=== PATIENT | female | born 1940 | race Caucasian/White ===

== ENCOUNTER 2018-06-18 21:59 | Observation (INO) | payer OTHER ==
[~2018-06-18] VITALS: Ht 172.7 cm; Wt 103.9 kg
[~2018-06-18 21:59] MED LIST: ATORVASTATIN CA20 MG PO; CEFTIN250 MG/5 M PO; FLUOXETINE HCL20 MG PO; FOLIC ACID1 MG PO; GLIMEPIRIDE4 MG PO; JANUMET XR 50-1 EAC1 PO; KEFLEX500 MG PO; LEVOTHYROXINE50 MCG PO; LOSARTAN POTAS100 MG PO; LOSARTAN POTASS25 MG PO; MECLIZINE HCL12.5 MG PO; METHOTREXATE2.5 MG PO; NIFEDIPINE ER30 M1 PO; PREDNISONE5 MG PO; TYLENOL WITH C1 EACH PO
--- NOTE | 2018-06-18 23:02 | Diagnostic Imaging Report ---
ADDENDUM #1 Dose modulation, iterative reconstruction, and/or weight based adjustment of the mA/kV was utilized to reduce the radiation dose to as low as reasonably achievable. Signed by: DR Klaus Rivera M.D. on 06/29/2018 8:18 PM ORIGINAL REPORT History:Fall, slurred speech Comparison studies:None Technique: Axial images were obtained from the skull base to the vertex. Coronal and sagittal images reconstructed from the axial data. Intravenous contrast: None Findings: Scalp/skull: No abnormalities. Extra-axial spaces: No masses. No fluid collections. Brain sulci: Mildly prominent. Ventricles: Mild compensatory dilatation. No hydrocephalus. Parenchyma: Few hypodensities in the supratentorial white matter are small vessel ischemic changes. No masses, hemorrhage, acute or chronic cortical vascular insults. Sellar/suprasellar region: No abnormalities. Craniocervical junction: Patent foramen magnum. No Chiari one malformation. Incidental findings: Atherosclerotic calcifications in the carotid siphons . Impression: No acute abnormalities. Chronic findings: 1. Mild generalized volume loss. 2. Mild supratentorial white matter small vessel ischemic changes. Signed by: DR Klaus Rivera M.D. on 06/18/2018 10:59 PM
[2018-06-18 23:04] LABS: BASOPHILS # (AUTO) 0.1 (0.0-0.1); EOSINOPHILS # (AUTO) 0.1 (0.0-0.4); EOSINOPHILS % 1.9 % (0.0-6.0); HEMATOCRIT 41.1 % (34.2-44.1); LYMPHOCYTES # (AUTO) 2.5 (1.0-3.2); LYMPHOCYTES % 37.6 % (18.0-39.1); MEAN CORPUSCULAR HEMOGLOBIN 34.8 pg (28-32); MEAN CORPUSCULAR HGB CONC 34.1 g/dL (31-35); MEAN CORPUSCULAR VOLUME 102.2 fL (81-99); MONOCYTES # (AUTO) 0.9 (0.2-0.8); MONOCYTES % 12.9 % (4.4-11.3); NEUTROPHILS # (AUTO) 3.1 (2.1-6.9); NEUTROPHILS % 45.4 % (38.7-80.0); PLATELET COUNT 263 x10e3/uL (140-360); RED BLOOD COUNT 4.02 x10e6/uL (3.6-5.1); RED CELL DISTRIBUTION WIDTH 13.5 % (11.7-14.4)
--- NOTE | 2018-06-18 23:05 | Diagnostic Imaging Report ---
ADDENDUM #1 Dose modulation, iterative reconstruction, and/or weight based adjustment of the mA/kV was utilized to reduce the radiation dose to as low as reasonably achievable. Signed by: DR Klaus Rivera M.D. on 06/29/2018 8:19 PM ORIGINAL REPORT History: Fall Comparison studies: None Technique: Axial images were obtained through the cervical region. Coronal and sagittal images reconstructed from the axial data. Intravenous contrast: None Findings: Atlantoaxial articulation: No acute abnormality. Degenerative changes. Space, sclerosis and marginal osteophytes Alignment: Straightening cervical lordosis Cervicomedullary junction: No abnormalities. Patent foramen magnum. Soft tissues: No gross acute abnormalities. Atherosclerotic calcifications of the carotid siphons Vertebrae: No fractures, neoplasm or infection. Degenerative changes: C2-C3: Patent spinal canal and foramina . C3-4: Bilateral uncinate process and facet hypertrophy results in bilateral . C4-5: Is degeneration with decreased through 2 space. Bilateral uncinate processes and left facet hypertrophy results in significant canal stenosis and moderate left foraminal narrowing . C5-6: Disc degeneration with decreased intervertebral space and mild sclerosis. Bilateral uncinate process hypertrophy and facet hypertrophy results in mild canal stenosis and moderate bilateral foraminal narrowing. . C6-7: Disc degeneration with decreased intervertebral space. Asymmetric right disc osteophyte complex, bilateral uncinate process hypertrophy and facet hypertrophy results in moderate right canal stenosis and severe bilateral foraminal narrowing . C7-T1: Patent spinal canal and foramina . IMPRESSION: 1. No acute abnormality. Degenerative changes as described above. 2. Cannot exclude ligament, spinal cord and or vascular abnormalities on the basis of this examination Signed by: DR Klaus Rivera M.D. on 06/18/2018 11:02 PM
[2018-06-18 23:11] LABS: CLARITY,URINE CLOUDY (CLEAR); COLOR,URINE YELLOW (YELLOW); LEUKOCYTE ESTERASE ,URINE NEGATIVE (NEGATIVE)
[2018-06-18 23:12] LABS: BILIRUBIN,URINE NEGATIVE (NEGATIVE); KETONES,URINE NEGATIVE (NEGATIVE); NITRITE,URINE NEGATIVE (NEGATIVE); PROTEIN,URINE DIPSTICK NEGATIVE (NEGATIVE); URINE UROBILINOGEN 0.2 mg/dL (0.2 - 1)
[2018-06-18 23:16] LABS: INR 1.02; PROTHROMBIN TIME 12.6 seconds (11.9-14.5)
[2018-06-18 23:17] LABS: PARTIAL THROMBOPLASTIN TIME 23.1 seconds (23.8-35.5)
--- NOTE | 2018-06-18 23:18 | Diagnostic Imaging Report ---
EXAMINATION: CHEST SINGLE (PORTABLE) INDICATION: Status post fall, chest pain COMPARISON: None FINDINGS: TUBES and LINES: None. LUNGS: Lungs are well inflated. Lungs are clear. There is mild prominence of the central pulmonary vasculature, consistent with pulmonary venous congestion. PLEURA: No pleural effusion or pneumothorax. HEART AND MEDIASTINUM: The cardiomediastinal silhouette is unremarkable. There are atherosclerotic calcifications within the aorta. BONES AND SOFT TISSUES: No acute osseous lesion. Soft tissues are unremarkable. UPPER ABDOMEN: No free air under the diaphragm. IMPRESSION: No acute thoracic abnormality. Signed by: Dr. Ramon Duarte M.D. on 06/18/2018 11:15 PM
[2018-06-18 23:20] LABS: BACTERIA,URINE FEW /HPF; EPITHELIAL CELLS,URINE FEW /LPF; RBC,URINE 0-5 /HPF (0-5); TRANSITIONAL EPI CELLS,URINE FEW; WBC,URINE (MAN) >50 /HPF (0-5)
[2018-06-18 23:26] LABS: ALBUMIN 3.7 g/dL (3.5-5.0); ALBUMIN/GLOBULIN RATIO 1.1 (0.8-2.0); ANION GAP 15.7 mmol/L (8-16); CALCIUM 9.5 mg/dL (8.4-10.2); CREATININE, SERUM 1.23 mg/dL (0.57-1.11); POTASSIUM 3.7 mmol/L (3.5-5.1)
[2018-06-18 23:35] LABS: CREATINE KINASE MB 0.9 ng/mL (0-5.0)
[2018-06-19] MEDS ORDERED: SODIUM CHLORIDE FLUSH 10 ML SYR INJ PRN (00:30)
[2018-06-19] MEDS ORDERED: DEXTROSE 50% SYRINGE 50 ML IV PRN (00:30)
[2018-06-19] MEDS ORDERED: ONDANSETRON HCL INJ 2 MG/ML VIAL IV PRN (00:30)
[2018-06-19] MEDS ORDERED: CEFTRIAXONE SOD 1 GM VIAL IV SCH ×2 (01:00→15:30)
[2018-06-19 05:55] LABS: CREATINE KINASE MB 0.8 ng/mL (0-5.0)
[2018-06-19] MEDS: INSULIN REGULAR, HUMAN 100 UNIT/1 ML 3ML VIAL SQ SCH ×2 (07:30→11:30)
[2018-06-19 10:19] VITALS: BP 131/57
[2018-06-19 10:23] VITALS: BP 131/57
[2018-06-19 12:30] VITALS: BP 123/53
[2018-06-19 14:33] LABS: CREATINE KINASE MB 0.8 ng/mL (0-5.0)
[2018-06-19] MEDS ORDERED: KEFLEX500 MG PO (14:45)
[2018-06-19] MEDS ORDERED: CEFTRIAXONE SOD 1 GM/NS 50 ML 50 ML IV SCH (14:45)
--- NOTE | 2018-06-19 15:47 | History and Physical ---
The patient is in observation. CHIEF COMPLAINT: Altered mental status. HISTORY: The patient is a pleasant 77-year-old female with diabetes, type 2, on insulin and recently started on Invokana. The patient came in because she had a recent fall without any obvious injury. The patient has some altered mental status, some wording problems, but now completely resolved. The patient is otherwise stable. Her urinalysis showed that she had greater than 50 wbcs with bacteria and cloudy urine. The patient is otherwise stable. No fever. She does have a history of urinary retention. She was seen by Dr. Sylvester in the past. PAST MEDICAL HISTORY: Diabetes, type 2, on insulin therapy, dyslipidemia, depression, inflammatory arthritis. PAST SURGICAL HISTORY: Hysterectomy and appendectomy. SOCIAL HISTORY: Patient does not smoke or use alcohol. No recreational drugs. ALLERGIES: ALL FLOXIN MEDICATIONS. HOME MEDICATIONS: List reviewed. REVIEW OF SYSTEMS: Patient is completely back to her baseline. PHYSICAL EXAMINATION VITAL SIGNS: Temperature 98, blood pressure 131/57, pulse rate 52, respirations 18. GENERAL: The patient is not in acute distress. She is awake. HEENT: Normocephalic, atraumatic and nonicteric. NECK: Supple grossly. PULMONARY: Clear. CARDIOVASCULAR: Regular rate and rhythm. ABDOMEN: Soft and unremarkable. EXTREMITIES: No cyanosis or edema. NEUROLOGIC: No focal deficit. LABORATORY: WBC 6.7, hemoglobin 14, hematocrit 41, and platelets 363,000. Chemistry: Sodium 134, potassium 3.7, chloride 103, bicarb 19, BUN is 29, creatinine 1.2, glucose is 128. Cardiac enzymes are negative. IMPRESSION 1. Urinary tract infection. 2. Some confusion secondary to urinary tract infection. There is no sepsis. No fever. PLAN: The patient is going to go home. She did receive 2 doses of Rocephin. She is completely back to her baseline. She will take Keflex 500 mg t.i.d. for 7 days. Resume home medications except Invokana, which previously placed the patient at risk for urinary tract infection due to her urinary retention. Patient is stable and discharged home. Follow up with Dr. Milind Vargas, her PCP in approximately 1 week. Job#: [id number] [place]
--- NOTE | 2018-06-19 17:12 | Discharge Summary ---
PRIMARY CARE PHYSICIAN: Dr. Milind Vargas. FINAL DIAGNOSES: 1. Urinary tract infection. 2. Confusion, resolved. Please review my history and physical. The patient will go home today. Resume home medication except for Invokana. She will take Keflex 500 mg 3 times a day for 7 days. The patient is discharging from the emergency room hold. Activity as tolerated. Job#: [id number]
--- OUTSIDE RECORDS SUMMARY | 2018-08-05 02:53 | XMS REPORT ---
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 Allergies, Adverse Reactions, Alerts This patient has no known allergies or adverse reactions. Medications This patient has no known medications. Results Test Description Test Time Test Comments Text Results Atomic Results Result Comments CHEST SINGLE (PORTABLE) 2018-06-18 23:14:00 [facility] [address] [place] [id number] Patient Name: LOLA URRUTIA MR #: [id number] : 1940 Age/Sex: 77/ F Req #: [id number] Adm Physician: Ordered by: ANGUS JEAN MD Report #: [id number] Location: ER Room/Bed: ____ Procedure: [id number] DX/CHEST SINGLE (PORTABLE) Exam Date: 06/18/18 Exam Time: 2241 REPORT STATUS: Signed EXAMINATION: CHEST SINGLE (PORTABLE) INDICATION: Status post fall, chest pain COMPARISON: None FINDINGS: TUBES and LINES: None. LUNGS: Lungs are well inflated. Lungs are clear. There is mild prominence of the central pulmonary vasculature, consistent with pulmonary venous congestion. PLEURA: No pleural effusion or pneumothorax. HEART AND MEDIASTINUM: The cardiomediastinal silhouette is unremarkable. There are atherosclerotic calcifications within the aorta. BONES AND SOFT TISSUES: No acute osseous lesion. Soft tissues are unremarkable. UPPER ABDOMEN: No free air under the diaphragm. IMPRESSION: No acute thoracic abnormality. Signed by: Dr. Ramon Duarte M.D. on 06/18/2018 11:15 PM Dictated By: RAMON WESTFALL MD 14 Transcribed By: MEL on 06/18/182314 COPY TO: NAGUS JEAN MD CT CERVICAL SPINE WO 2018-06-18 22:59:00 [place] [address] Patient Name: LOLA URRUTIA MR #: [id number] : 1940 Age/Sex: 77/F Req #: [id number] Adm Physician: CARLTON JONES MD Ordered by: ANGUS JEAN MD Report #: [id number] Location: [facility] Room/Bed: [place] [address] Procedure: [id number] CT/CT CERVICAL SPINE WO Exam Date: 06/18/18 Exam Time: 0 REPORT STATUS: Signed ADDENDUM #1 Dose modulation, iterative reconstruction, and/or weight based adjustment of the mA/kV was utilized to reduce the radiation dose to as low as reasonably achievable. Signed by: DR Klaus Rivera M.D. on 06/29/2018 8:19 PM ORIGINAL REPORT History: Fall Comparison studies: None Technique: Axial images were obtained through the cervical region. Coronal and sagittal images reconstructed from the axial data. Intravenous contrast: None Findings: Atlantoaxial articulation: No acute abnormality. Degenerative changes. Space, sclerosis and marginal osteophytes Alignment: Straightening cervical lordosis Cervicomedullary junction: No abnormalities. Patent foramen magnum. Soft tissues: No gross acute abnormalities. Atherosclerotic calcifications of the carotid siphons Vertebrae: No fractures, neoplasm or infection. Degenerative changes: C2-C3: Patent spinal canal and foramina . C3-4: Bilateral uncinate process and facet hypertrophy results in bilateral . C4-5: Is degeneration with decreased through 2 space. Bilateral uncinate processes and left facet hypertrophy results in significant canal stenosis and moderate left foraminal narrowing . C5-6: Disc degeneration with decreased intervertebral space and mild sclerosis. Bilateral uncinate process hypertrophy and facet hypertrophy results in mild canal stenosis and moderate bilateral foraminal narrowing. . C6-7: Disc degeneration with decreased intervertebral space. Asymmetric right disc osteophyte complex, bilateral uncinate process hypertrophy and facet hypertrophy results in moderate right canal stenosis and severe bilateral foraminal narrowing . C7-T1: Patent spinal canal and foramina . IMPRESSION: 1. No acute abnormality. Degenerative changes as described above. 2. Cannot exclude ligament, spinal cord and or vascular abnormalities on the basis of this examination Signed by: DR Klaus Rivera M.D. on 06/18/2018 11:02 PM Dictated By: KLAUS VERONICA MD 18 Transcribed By: MEL on 06/18/18 3619 COPY TO: ANGUS JEAN MD CT BRAIN WO 2018-06-18 22:56:00 [place] [address] Patient Name: LOLA URRUTIA MR #: [id number] : 1940 Age/Sex: 77/F Req #: [id number] Adm Physician: CARLTON JONES MD Ordered by: ANGUS JEAN MD Report #: [id number] Location: [facility] Room/Bed: [place] [address] Procedure: [id number] CT/CT BRAIN WO Exam Date: 06/18/18 Exam Time: 2240 REPORT STATUS: Signed ADDENDUM #1 Dose modulation, iterative reconstruction, and/or weight based adjustment of the mA/kV was utilized to reduce the radiation dose to as low as reasonably achievable. Signed by: DR Klaus Rivera M.D. on 06/29/2018 8:18 PM ORIGINAL REPORT History:Fall, slurred speech Comparison studies:None Technique: Axial images were obtained from the skull base to the vertex. Coronal and sagittal images reconstructed from the axial data. Intravenous contrast: None Findings: Scalp/skull: No abnormalities. Extra- axial spaces: No masses. No fluid collections. Brain sulci: Mildly prominent. Ventricles: Mild compensatory dilatation. No hydrocephalus. Parenchyma: Few hypodensities in the supratentorial white matter are small vessel ischemic changes. No masses, hemorrhage, acute or chronic cortical vascular insults. Sellar/suprasellar region: No abnormalities. Craniocervical junction: Patent foramen magnum. No Chiari one malformation. Incidental findings: Atherosclerotic calcifications in the carotid siphons . Impression: No acute abnormalities. Chronic findings: 1. Mild generalized volume loss. 2. Mild supratentorial white matter small vessel ischemic changes. Signed by: DR Klaus Rivera M.D. on 2017 10:59 PM Dictated By: KLAUS JENKINS MD 17 Transcribed By: MEL on 06/18/18 0918 COPY TO: ANGUS JEAN MD [address] ([place] [address] Patient Name: LOLA URRUTIA MR #: [id number] : 1940 Age/Sex: 76/F Req #: [id number] Adm Physician: Ordered by: KIRILL RODGERS MD Report #: [id number] Location: OR Room/Bed: Procedure: [id number] DX/ABDOMEN-1VIEW (KUB) Exam Date: 07/29/17 Exam Time : 1035 REPORT STATUS: Signed PROCEDURE: X-RAY ABDOMEN - KUB COMPARISON: 06/24/2017. INDICATIONS: PREOPERATIVE XRAY FOR STENT REMOVAL FINDINGS: Interval placement of a left internal ureteral stent. The proximal locking loop projects over the renal pelvis. Distal locking loop projects over the midline low pelvis. Distal left ureteral calculus described on the comparison study is no longer visualized. Multiple pelvic phleboliths. No suspicious calcifications project over the renal shadows. Regional skeletal structures are intact with mild degenerative disc changes of the lower lumbar spine. Bowel gas pattern is nonobstructive. CONCLUSION: left internal ureteral stent has been placed in the interim. A distal left ureteral calculus is no longer visualized. Dictated by: Manjit Pham M.D. on 07/29/2017 at 11:21 Electronically approved by: Manjit Pham M.D. on 07/29/2017 at 11:21 Dictated By : MANJIT PHAM MD 1121 Transcribed By: FRENCH on 07/29/17 1121 COPY TO: KIRILL RODGERS MD ABDOMEN-1VIEW (KUB) [place] [address] Patient Name: LOLA URRUTIA MR #: [id number] : 1940 Age/Sex: 76/F Req #: [id number] Adm Physician: CARLTON JONES MD Ordered by: KIRILL RODGERS MD Report #: [id number] Location: [facility] Room/Bed: [facility] [place] _ Procedure: [id number] DX/ABDOMEN-1VIEW (KUB) Exam Date: 06/24/17 Exam Time: 1030 REPORT STATUS: Signed PROCEDURE: X- RAY ABDOMEN - KUB COMPARISON: CT abdomen and pelvis 06/23/2017. INDICATIONS: CALCULUS OF KIDNEY FINDINGS: There is a non- obstructed bowel-gas pattern. No air-fluid levels. Persistent left hydronephrosis and hydroureter. Calcification projecting over the expected region of the distal left ureter. There are no calcifications projected over the renal shadows, expected course of the right ureter or urinary bladder. Phleboliths are present in the pelvis. Degenerative changes of the lumbar spine. There are no acute osseous abnormalities. The lung bases are clear. CONCLUSION: Persistent left hydronephrosis and hydroureter secondary to distal left ureteral calculus. Dictated by: Carlton Pruett M.D. on 06/24/2017 at 11:08 Electronically approved by: Carlton Pruett M.D. on 06/24/2017 at 11:08 Dictated By: CARLTON PRUETT MD 1108 Transcribed By: FRENCH on 06/24/17 1108 COPY TO: KIRILL RODGERS MD CT BRAIN [place] [address] Patient Name: LOLA URRUTIA MR #: [id number] : 1940 Age/Sex: 76/F Req #: [id number] Adm Physician: Ordered by: JORGE L GALVAN MD Report #: [id number] Location: ER Room/Bed: Procedure: [id number] CT/CT BRAIN WO Exam Date: Exam Time: REPORT STATUS: Signed History: Nausea and vomiting Comparison studies: None Technique: Axial images were obtained from the skull base to the vertex. Coronal and sagittal reconstructions obtained from the axial data. Findings : Scalp/skull: No abnormalities. No fractures, blastic or lytic lesions. Extra-axial spaces: No masses. No fluid collections. Brain sulci: Appropriate for age. Ventricles: Normal in size and configuration. No hydrocephalus. Parenchyma: Subtle hypodensities in the supratentorial white matter are small vessel ischemic changes. No masses, hemorrhage, acute or chronic cortical vascular insults. Sellar/ suprasellar region: No abnormalities Craniocervical junction: Patent foramen magnum. No Chiari one malformation. IMPRESSION: 1. No acute abnormalities. 2. Minimal supratentorial white matter small vessel ischemic changes. Signed by: Dr. Shayne Beth M.D. on 06/23/2017 10:38 PM Dictated By: SHAYNE BETH MD, MD 37 Transcribed By: MEL on 06/23/172237 COPY TO: JORGE L GALVAN MD CT ABDOMEN/PELVIS [place] [address] Patient Name: LOLA URRUTIA MR #: [id number] : 1940 Age/Sex: 76/F Req #: [id number] Adm Physician: Ordered by: JORGE L GALVAN MD Report #: [id number] Location: ER Room/Bed: Procedure: [id number] CT/CT ABDOMEN/PELVIS W Exam Date: Exam Time: REPORT STATUS: Signed EXAM: CT ABDOMEN AND PELVIS with IV CONTRAST DATE: 06/23/2017 8:35 PM Time stamp on Exam: 2213 hours INDICATION: Nausea, vomiting diarrhea COMPARISON: None TECHNIQUE: The abdomen and pelvis were scanned using a multidetector helical scanner. Coronal and sagittal reformations were obtained. Routine protocol performed. IV Contrast: 100 cc Isovue 370 Oral Contrast: Water CTDIvol has been reviewed. It is below the limits set by the Radiation Protocol Committee (RPC). FINDINGS: LOWER THORAX: No consolidations LIVER: No masses BILIARY: The gallbladder is unremarkable. No ductal dilation. SPLEEN: No masses PANCREAS: No masses ADRENALS: No nodules KIDNEYS: There is a 5 mm stone in the distal left ureter resulting in moderate hydroureteronephrosis. Symmetric renal perfusion. No enhancing masses. GI TRACT: No distention, wall thickening or evidence of obstruction. Sigmoid colon diverticulosis. With likely chronic diverticulitis given wall thickening. No evidence of active inflammation. The appendix is not identified. VESSELS: Marked atherosclerotic changes of the abdominal aorta and branches. PERITONEUM/RETROPERITONEUM: No free air or fluid LYMPH NODES: No lymphadenopathy REPRODUCTIVE ORGANS: Uterus and ovaries not visualized. BLADDER: Decompressed by Jeffers catheter. SOFT TISSUES: Unremarkable BONES: No suspicious bone lesions. IMPRESSION: There is a 5 mm stone in the distal left ureter at the ureterovesicular junction resulting in moderate hydroureteronephrosis. Signed by: Dr. Velma Aguilera M.D. on 06/23/2017 10:50 PM Dictated By: VELMA AGUILERA MD 49 Transcribed By: MEL on 06/23/172249 COPY TO: JORGE L GALVAN MD CHEST 2 VIEWS [place] [address] Patient Name: LOLA URRUTIA MR #: [id number] : 1940 Age/Sex: 76/F Req #: [id number] Adm Physician: Ordered by: JORGE L GALVAN MD Report #: [id number] Location: ER Room/Bed: Procedure: [id number] DX/CHEST 2 VIEWS Exam Date: 06/23/17 Exam Time: 2007 REPORT STATUS: Signed EXAMINATION: CHEST 2 VIEWS INDICATION: Sepsis. Vomiting. COMPARISON: None FINDINGS: TUBES and LINES: None. LUNGS: Lungs are well inflated. Lungs are clear. There is no evidence of pneumonia or pulmonary edema. PLEURA: No pleural effusion or pneumothorax. HEART AND MEDIASTINUM: The cardiomediastinal silhouette is unremarkable. BONES AND SOFT TISSUES: No acute osseous lesion. Soft tissues are unremarkable. UPPER ABDOMEN: No free air under the diaphragm. IMPRESSION: No acute thoracic abnormality. Signed by: Dr. Arron Moctezuma M.D. on 06/23/2017 8:23 PM Dictated By: ARRON MOCTEZUMA MD, MD 22 Transcribed By: MEL on 06/23/172022 COPY TO: JORGE L GALVAN MD
== END 2018-06-19 16:00 | disposition home or self-care (01) ==
LOC: ER 21:59 → ERHOLD 06-19 00:34 → UNDOADMOB 06-19 01:25
PROVIDERS: ADMIT Internal Medicine; ATTEND Internal Medicine
DX: N30.00 Acute cystitis without hematuria (principal); S06.0X9A Concussion with loss of consciousness of unspecified duration, initial encounter; R55 Syncope and collapse; W18.39XA Other fall on same level, initial encounter; Y93.9 Activity, unspecified; Y92.019 Unspecified place in single-family (private) house as the place of occurrence of the external cause; E11.9 Type 2 diabetes mellitus without complications; Z79.4 Long term (current) use of insulin; E78.5 Hyperlipidemia, unspecified; R33.9 Retention of urine, unspecified; R41.0 Disorientation, unspecified
CPT/HCPCS: 36415 ×2; 70450; 71045; 72125; 80053; 81001; 82550 ×2; 82553 ×2; 82948; 84484 ×2; 85025; 85610; 85730; 93005; 93880; 97139; 99284; G0378; J0696

== ENCOUNTER 2019-05-06 17:20 | Inpatient (IN) | payer OTHER ==
[~2019-05-06] VITALS: Ht 171.4 cm; Wt 94.3 kg
[~2019-05-06 17:20] MED LIST changes: +BASAGLAR SQ; +FARXIGA PO; +FENOFIBRATE134 MG PO; +MYRBETRIQ50 MG PO; +PREDNISONE2.5 MG PO
--- NOTE | 2019-05-06 19:06 | Diagnostic Imaging Report ---
HIP LEFT 2-3 VW (+/- PELVIS) - 3 views HISTORY: Pain. COMPARISON: None available. FINDINGS: Bones: Common fracture of the left proximal femur extending through the intertrochanteric line. Joints: Moderate degenerative changes in bilateral femoral heads. Soft tissues: Diffuse soft tissue swelling around the left hip. IMPRESSION: Comminuted intertrochanteric fracture of the left hip. On the dedicated AP view of the left hip, the technologist placed a right hip marker. The other images have the correct marker side. Signed by: Dr. Anthony Younger M.D. on 05/06/2019 7:03 PM
--- NOTE | 2019-05-06 19:08 | Diagnostic Imaging Report ---
EXAMINATION: CHEST SINGLE (NOT PORTABLE) INDICATION: ^HIP, FX COMPARISON: Chest x-ray 01/21/2019. FINDINGS: AP view TUBES and LINES: None. LUNGS: Lungs are well inflated. Scattered emphysematous changes with upper lobe predominance, left greater than right. Superimposed infection cannot be excluded especially in the left lung. There is no evidence of pneumonia or pulmonary edema. PLEURA: No pleural effusion or pneumothorax. HEART AND MEDIASTINUM: The cardiomediastinal silhouette is unremarkable. There are atherosclerotic calcifications within the aorta. BONES AND SOFT TISSUES: No acute osseous lesion. Soft tissues are unremarkable. UPPER ABDOMEN: No free air under the diaphragm. IMPRESSION: Emphysematous changes. Superimposed infection especially the left lung cannot be excluded. Signed by: Dr. Anthony Younger M.D. on 05/06/2019 7:04 PM
[2019-05-06 19:11] LABS: BASOPHILS % 0.3 % (0.0-1.0); EOSINOPHILS # (AUTO) 0.1 (0.0-0.4); EOSINOPHILS % 0.4 % (0.0-6.0); HEMATOCRIT 36.6 % (34.2-44.1); HEMOGLOBIN 12.3 g/dL (12.0-16.0); LYMPHOCYTES # (AUTO) 3.1 (1.0-3.2); LYMPHOCYTES % 26.2 % (18.0-39.1); MEAN CORPUSCULAR HEMOGLOBIN 33.2 pg (28-32); MEAN CORPUSCULAR HGB CONC 33.6 g/dL (31-35); MEAN CORPUSCULAR VOLUME 98.9 fL (81-99); MONOCYTES # (AUTO) 1.2 (0.2-0.8); MONOCYTES % 10.1 % (4.4-11.3); NEUTROPHILS # (AUTO) 7.4 (2.1-6.9); NEUTROPHILS % 62.5 % (38.7-80.0); PLATELET COUNT 205 x10e3/uL (140-360); RED CELL DISTRIBUTION WIDTH 12.8 % (11.7-14.4)
--- NOTE | 2019-05-06 19:12 | Diagnostic Imaging Report ---
History:Weakness Comparison studies: Head CT without contrast on 06/18/2018 and 01/20/2019. Brain MRI on 01/21/2019 Technique: Axial images were obtained from the skull base to the vertex. Coronal and sagittal images reconstructed from the axial data. Dose modulation, iterative reconstruction, and/or weight based adjustment of the mA/kV was utilized to reduce the radiation dose to as low as reasonably achievable. Intravenous contrast: None Findings: Scalp/skull: No abnormalities. Extra-axial spaces: No masses. No fluid collections. Brain sulci: Mildly prominent. Ventricles: Mild compensatory dilatation. No hydrocephalus. Parenchyma: Chronic chronic encephalomalacic changes in the posterior medial cerebellum which involve the right cerebellar tonsil and the inferior vermis are the result of a right PICA vascular insult which was acute on 01/21/2019. Additional encephalomalacic changes in the angular region of the left parietal lobe are also the result of a vascular insult which was acute on 06/18/2018. Subtle, scattered hypodensities in the supratentorial white matter are small vessel ischemic changes. No masses, hemorrhage, acute or chronic cortical vascular insults. Sellar/suprasellar region: No abnormalities. Craniocervical junction: Patent foramen magnum. No Chiari one malformation. Incidental findings: Atherosclerotic calcifications in the carotid siphons and intradural vertebral arteries. Impression: 1. No acute abnormalities. 2. 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 3. Otherwise, no changes when compared to the previous study. Chronic findings: Mild generalized volume loss. Mild supratentorial white matter vessel ischemic changes. Signed by: Dr. Shayne Mclaughlin M.D. on 05/06/2019 7:08 PM
[2019-05-06 19:21] LABS: INR 0.89; PARTIAL THROMBOPLASTIN TIME 22.7 seconds (23.8-35.5); PROTHROMBIN TIME 12.5 seconds (11.9-14.5)
[2019-05-06 19:22] LABS: CLARITY,URINE SL CLOUDY (CLEAR); COLOR,URINE YELLOW (YELLOW)
[2019-05-06 19:23] LABS: KETONES,URINE NEGATIVE (NEGATIVE); LEUKOCYTE ESTERASE ,URINE NEGATIVE (NEGATIVE); NITRITE,URINE NEGATIVE (NEGATIVE); PROTEIN,URINE DIPSTICK NEGATIVE (NEGATIVE); URINE UROBILINOGEN 0.2 mg/dL (0.2 - 1)
[2019-05-06 19:24] LABS: BILIRUBIN,URINE NEGATIVE (NEGATIVE)
[2019-05-06 19:33] LABS: ALBUMIN 3.2 g/dL (3.5-5.0); ALBUMIN/GLOBULIN RATIO 1.1 (0.8-2.0); ANION GAP 15.7 mmol/L (8-16); CALCIUM 8.9 mg/dL (8.4-10.2); CREATININE, SERUM 1.12 mg/dL (0.57-1.11); POTASSIUM 4.7 mmol/L (3.5-5.1)
[2019-05-06 19:37] LABS: WBC,URINE (MAN) 0-5 /HPF (0-5)
[2019-05-06 19:38] LABS: BACTERIA,URINE MANY /HPF; EPITHELIAL CELLS,URINE RARE /LPF
[2019-05-06] MEDS ORDERED: MORPHINE SULFATE 5 MG/ML VIAL IV PRN (20:30)
[2019-05-06] MEDS ORDERED: DEXTROSE 50% SYRINGE 50 ML IV PRN (20:30)
[2019-05-06] MEDS: INSULIN REGULAR, HUMAN 100 UNIT/1 ML 3ML VIAL SQ SCH (21:43)
--- NOTE | 2019-05-06 22:26 | NUR ---
RECEIVED PATIENT AAOX3. SCDS/TEDS PLACED PER ORDERS. BUCKS W/ 5 LBS TO LEFT LEG. PATIENT MADE COMFORTABLE UPDATED TO PLAN OF CARE. PUREWICK PLACED TO SUCTION. NO NEEDS VOICED. BED LOCKED AND IN LOWEST POSITION. CALL LIGHT WITHIN REACH.
[2019-05-06 22:30] VITALS: BP 122/58
--- NOTE | 2019-05-06 22:45 | NUR ---
NOTIFIED DR. BROWN OF CONSULT. NO ORDERS RECEIVED.
[2019-05-06] MEDS: MORPHINE SULFATE INJ 4 MG/ML INJ 1ML IV PRN (23:40)
[2019-05-07] VITALS (8 sets, daily range): BP systolic 110–135; BP diastolic 54–59
[2019-05-07] MEDS ORDERED: DULCOLAX SUPP10 MG RC (00:28)
[2019-05-07] MEDS ORDERED: ACETAMINOPHEN325 M1 PO (00:28)
[2019-05-07] MEDS ORDERED: HYZAAR 100-251 EACH PO (00:28)
[2019-05-07] MEDS ORDERED: POLYETHYLENE GL17 GM PO (00:28)
[2019-05-07] MEDS ORDERED: SENNA LAX8.6 MG PO (00:28)
[2019-05-07] MEDS ORDERED: ASPIRIN EC81 MG PO (00:28)
[2019-05-07] MEDS ORDERED: ONDANSETRON HCL4 MG PO (00:28)
[2019-05-07] MEDS ORDERED: LEVEMIR100 UNIT/1 SQ (00:28)
[2019-05-07] MEDS ORDERED: NAMENDA10 MG PO (00:28)
--- NOTE | 2019-05-07 07:30 | NUR ---
PT IN BED SLEEPING NO DISTRESS NOTED,NO S/S DISCOMFORT
[2019-05-07] MEDS: INSULIN REGULAR, HUMAN 100 UNIT/1 ML 3ML VIAL SQ SCH ×4 (08:00→21:16)
[2019-05-07] MEDS: MORPHINE SULFATE INJ 4 MG/ML INJ 1ML IV PRN ×3 (10:00→20:38)
--- NOTE | 2019-05-07 14:00 | NUR ---
PT HAS NOT VOIDED IN 8 HOURS BLADDER SCAN SHOWED 400 CC,16FR BLOOM CATH INSERTED ORDERED.
--- NOTE | 2019-05-07 15:02 | History and Physical ---
PRIMARY CARE PHYSICIAN: Dr. Ulises Valentin. CHIEF COMPLAINT: Status post fall with left hip fractures. HISTORY OF PRESENT ILLNESS: The patient is a 78-year-old female, tried to transfer herself from a walker to wheelchair at home and suffered a fall. Imaging was done. The patient has comminuted intertrochanteric fractures of the left hip. The patient is now admitted. She had a left traction in place. The patient is otherwise stable. No history of coronary artery disease. No lung issue. The patient is stable for surgical intervention. 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 Diabetes type 2, depression, diabetic neuropathy, and rheumatoid arthritis. PAST SURGICAL HISTORY: Hysterectomy and appendectomy. SOCIAL HISTORY: The patient does not smoke or use alcohol. No recreational drug use. ALLERGIES: OFLOXACIN. HOME MEDICATIONS: List is reviewed. REVIEW OF SYSTEMS: Left hip pain. PHYSICAL EXAMINATION: VITAL SIGNS: Temperature is 98, blood pressure 115/56, pulse rate 73, respirations 18. GENERAL: The patient is not in acute distress. HEENT: Normocephalic, atraumatic. Anicteric. NECK: Supple grossly. PULMONARY: Clear. CARDIOVASCULAR: Regular rhythm. ABDOMEN: Obese. EXTREMITY: Left hip fractures. Left lower extremity in traction at the hip. NEUROLOGIC: No focal deficit. Moving all extremities. LABORATORY DATA: Sodium is 138, potassium 4.7, chloride 103, bicarb 24, BUN 27, creatinine 1.1, glucose is 195. WBC 11.8, hemoglobin 12.3, hematocrit 36.6, platelets is 205. IMPRESSION: 1. Status post fall with left comminuted hip fractures. 2. Multiple stable medical problems. PLAN: Surgical intervention with Dr. Dionicio Rogers. Continue with medication. We will follow up. MD LISA Jones/JASPER /[id number]
--- NOTE | 2019-05-07 17:10 | NUR ---
PT RESTING NO S/S DISCOMFORT
[2019-05-07] MEDS ORDERED: SODIUM CHLORIDE 0.9% 1000ML 1,000 ML IV ONE (18:30)
[2019-05-07] MEDS ORDERED: CEFAZOLIN SOD 1 GM VIAL IV ONE (18:30)
[2019-05-07] MEDS ORDERED: CEFAZOLIN SOD 2 GM/D5W 50ML 50 ML IV ONE (19:00)
[2019-05-07] MEDS ORDERED: CEFAZOLIN SOD IV ONE (19:00)
[2019-05-07] MEDS ORDERED: SODIUM CHLORIDE 0.9% IV ONE (19:00)
--- NOTE | 2019-05-07 19:10 | NUR ---
RECEIVED PATIENT AAOX4, RESTING IN BED. FAMILY MEMBERS AT BEDSIDE. PAIN IS "TOLERABLE" PER PATIENT, INSTRUCTED TO CALL IN PAIN INCREASES AND IF NEEDS ASSISTANCE. PATIENT VERBALIZED UNDERSTANDING. LEFT LEG IN BUCKS TRACTION W/ 5LB WEIGHT. NO NEEDS VOICED AT THIS TIME. BED LOCKED AND IN LOWEST POSITION, CALL LIGHT WITHIN EASY REACH.
--- NOTE | 2019-05-07 20:38 | NUR ---
ASSISTED PATIENT TO BEDPAN, CALL LIGHT GIVEN TO PATIENT. INSTRUCTED TO CALL WHEN FINISHED FOR ASSISTANCE OFF BEDPAN. PATIENT VERBALIZED UNDERSTANDING. WILL CONTINUE TO MONITOR PATIENT.
[2019-05-08] VITALS (7 sets, daily range): BP systolic 116–137; BP diastolic 56–65
[2019-05-08] MEDS: MORPHINE SULFATE INJ 4 MG/ML INJ 1ML IV PRN (06:33)
[2019-05-08] MEDS: INSULIN REGULAR, HUMAN 100 UNIT/1 ML 3ML VIAL SQ SCH ×4 (07:30→20:45)
--- NOTE | 2019-05-08 07:30 | NUR ---
PT TRANSPORTED TO TO OR VIA BED
[2019-05-08] MEDS: SODIUM CHLORIDE 0.9% 1000ML 1,000 ML IV SCH (10:23)
[2019-05-08] MEDS ORDERED: HYDROMORPHONE 0.2MG/ML-SOD CHL 30ML PCA SYRINGE IV PRN (10:30)
[2019-05-08] MEDS ORDERED: NALOXONE HCL INJ 0.4 MG/ML AMP IV PRN (10:30)
[2019-05-08] MEDS ORDERED: ACETAMINOPHEN 1000 MG/100 ML IV PRN (10:30)
[2019-05-08] MEDS ORDERED: ONDANSETRON HCL INJ 2MG/ML 2ML 2 MG/ML VIAL IV PRN (10:30)
[2019-05-08] MEDS ORDERED: HYDROMORPHONE 0.2MG/ML-SOD CHL 30ML PCA SYRINGE IV ONE (10:49)
--- NOTE | 2019-05-08 11:29 | Diagnostic Imaging Report ---
[facility] X-RAY - 2 VIEWS, LEFT FEMUR X-RAY, 2 VIEWS HISTORY: ^POST OP ^[id number] ^1030 ^Y COMPARISON: Left hip x-ray 05/06/2019 FINDINGS: Bones: Interval repair with intramedullary chiara of the left intertrochanteric fracture. The is intact with alignment. Persistent displaced bony fragment measuring 5.7 cm adjacent to the proximal femoral metadiaphysis. No new fractures. Osseous alignment is within normal limits. Joints: Moderate degenerative changes of the right hip and lower lumbar spine. Soft tissues: The soft tissues appear unremarkable. Jeffers catheter is partially visualized. IMPRESSION: Status post ORIF of a left intertrochanteric fracture. The hardware is intact. Signed by: Dr. Katie Duran M.D. on 05/08/2019 11:26 AM
--- NOTE | 2019-05-08 11:30 | NUR ---
PT RETURNED TO ROOM VIA BED ,DROWSY EASILY AROUSED ,IVF AND PAMPHLET DISTRIBUTOR INFUSING,FOOT PUMPS IN PLACE,O2 2L NC IN PLACE,BLOOM TO BSD GABRIEL URINE,ICE PACK APPLIED TO LT HIP,KARELY CD&I,TELE #6 APPLIED NSR 77,O
[2019-05-08] MEDS ORDERED: SEVOFLURANE INHAL SOLN 250 ML PEN BTL ONE (14:48)
[2019-05-08] MEDS ORDERED: LIDOCAINE HCL 2% LOCAL INJ 5 ML SDV VIAL INJ ONE (14:48)
[2019-05-08] MEDS ORDERED: PROPOFOL IV EMULSION 10 MG/ML 20 ML VIAL ONE (14:48)
[2019-05-08] MEDS ORDERED: DEXAMETHASONE SOD PHOS INJ 4 MG/ML VIAL ONE (14:48)
[2019-05-08] MEDS ORDERED: ONDANSETRON HCL INJ 2MG/ML 2ML 2 MG/ML VIAL ONE (14:48)
[2019-05-08] MEDS ORDERED: KETAMINE HCL INJ 50 MG/ML 10 ML VIAL ONE (14:58)
[2019-05-08] MEDS ORDERED: FENTANYL CITRATE/PF 100MCG/2 ML INJ ONE (14:58)
[2019-05-08] MEDS: CEFAZOLIN SOD 1 GM/NS 50ML 50 ML IV SCH ×2 (15:05→22:11)
--- NOTE | 2019-05-08 17:49 | NUR ---
PT UP IN BED AWAKE DENIES PAIN,TOLERATED DIET WELL,
--- NOTE | 2019-05-08 19:00 | NUR ---
Report and walking rounds completed. Patient in bed with son at bedside. COSMETIC DENTIST checked and cleared. Call light within reach. Will continue to monitor.
[2019-05-09] VITALS (7 sets, daily range): BP systolic 109–157; BP diastolic 55–70
[2019-05-09] MEDS: SODIUM CHLORIDE 0.9% 1000ML 1,000 ML IV SCH ×2 (01:26→13:03)
[2019-05-09 06:07] LABS: ANION GAP 11.7 mmol/L (8-16); BLOOD UREA NITROGEN 28 mg/dL (7-26); BUN/CREATININE RATIO 34 (6-25); CALCIUM 8.1 mg/dL (8.4-10.2); CARBON DIOXIDE 24 mmol/L (22-29); CHLORIDE 102 mmol/L (98-107); CREATININE, SERUM 0.82 mg/dL (0.57-1.11); EST GLOMERULAR FILTRATION RATE > 60 ML/MIN (60-); GLUCOSE 180 mg/dL (74-118); POTASSIUM 4.7 mmol/L (3.5-5.1); SODIUM 133 mmol/L (136-145)
[2019-05-09] MEDS: CEFAZOLIN SOD 1 GM/NS 50ML 50 ML IV SCH (06:08)
[2019-05-09 07:22] LABS: BASOPHILS % 0.1 % (0.0-1.0); EOSINOPHILS % 0.2 % (0.0-6.0); LYMPHOCYTES # (AUTO) 2.7 (1.0-3.2); LYMPHOCYTES % 20.9 % (18.0-39.1); MEAN CORPUSCULAR HEMOGLOBIN 33.3 pg (28-32); MONOCYTES # (AUTO) 1.5 (0.2-0.8); MONOCYTES % 11.7 % (4.4-11.3); NEUTROPHILS # (AUTO) 8.6 (2.1-6.9); NEUTROPHILS % 66.3 % (38.7-80.0); PLATELET COUNT 147 x10e3/uL (140-360); RED BLOOD COUNT 1.92 x10e6/uL (3.6-5.1)
[2019-05-09 07:25] LABS: HEMOGLOBIN 6.4 g/dL (12.0-16.0)
[2019-05-09 07:26] LABS: HEMATOCRIT 19.4 % (34.2-44.1)
--- NOTE | 2019-05-09 07:31 | NUR ---
RECEIVED PATIENT RESTING IN BED NO SIGNS OF DISTRESS. BED LOW, WHEELS LOCKED, SIDE RAILS X2. CALL LIGHT IN REACH WILL CONTINUE TO MONITOR PATIENT.
[2019-05-09] MEDS ORDERED: ACETAMINOPHEN 325 MG TAB PO STA (07:37)
[2019-05-09] MEDS ORDERED: FUROSEMIDE INJ 10 MG/ML 2 ML VIAL IV SCH (07:45)
[2019-05-09] MEDS ORDERED: SODIUM CHLORIDE 0.9% 250ML 250 ML IV ONE (08:30)
[2019-05-09] MEDS ORDERED: DIPHENHYDRAMINE HCL 25 MG CAP PO ONE (08:30)
[2019-05-09 09:23] LABS: LYMPHOCYTES % (MANUAL) 35 % (19-48); MONOCYTES % (MANUAL) 9 % (3.4-9.0); NEUTROPHILS % (MANUAL) 56 % (40-74)
[2019-05-09 09:24] LABS: PLATELET ESTIMATE ADEQUATE; PLATELET MORPHOLOGY COMMENT NORMAL; RBC MORPHOLOGY COMMENT NORMAL
[2019-05-09] MEDS: INSULIN REGULAR, HUMAN 100 UNIT/1 ML 3ML VIAL SQ SCH ×4 (09:45→21:45)
--- NOTE | 2019-05-09 11:05 | Operative Report ---
DATE OF PROCEDURE: 05/08/2019 SURGEON: Dionicio Rogers MD PREOPERATIVE DIAGNOSIS: Displaced left intertrochanteric hip fracture. POSTOPERATIVE DIAGNOSIS: Displaced left intertrochanteric hip fracture. OPERATIONS AND PROCEDURE PERFORMED: The patient underwent a closed reduction and long gamma nail stabilization of her left intertrochanteric hip fracture. CHAIR: There was no judicial administrative assistant. ANESTHESIA: General endotracheal intubation anesthesia. IV FLUIDS: Per the anesthesia record. BRIEF DISCUSSION OF THE PATIENT'S OPERATIVE PROCEDURE: Mrs. Dunn was taken to the operating room and placed in supine position on the operating table. Following induction of general anesthesia as well as endotracheal intubation, the patient's left lower extremity was placed in a well-padded longitudinal traction. The right lower extremity was placed in a well-padded lithotomy position. Fluoroscopic evaluation of the left hip demonstrated a displaced intertrochanteric hip fracture. The patient's leg was manipulated in traction and this resulted in acceptable realignment of her injury. The patient's spine and flank were then prepped and draped in standard surgical fashion. Case was begun by creating an incision roughly at the level of the greater trochanter. This incision was carried through skin only. Blunt dissection was used to deepen the incision to the level of tensor fascia rolan and gluteus garett fascia. This was incised in line with the skin incision. Blunt dissection was used to deepen the incision to the level of the greater trochanter. A cannulated awl was placed on the tip of the trochanter and advanced within the femur. The position of the awl was checked using fluoroscopy. A guidewire was then inserted through the awl into the medullary canal of femur. Position of this guidewire was checked again using fluoroscopy in both the AP and lateral planes. Sequential reaming was performed. An appropriate size nail was chosen and inserted into the femur without difficulty. A second incision was created somewhat more distally on the lateral aspect of the leg. This incision was again deep into the level of the tensor fascia rolan. The tensor fascia rolan was incised in line with the skin incision. A guide was placed against the lateral aspect of the femur. A guide pin was advanced from lateral to medial through the neck into the head of the femur. The position of the guidepin was checked in both AP and lateral planes using fluoroscopy. Measurements were taken and a reamer was used to create a channel for the implant. A compression screw was advanced across the patient's fracture site through the neck into the head of the femur. Compression was then placed across the patient's fracture site. The compression screw was then locked to allow for further compression to prevent rotation. The nail was then locked distally with two screws using the freehand technique. All wounds were copiously irrigated. Soft tissues were closed in a multilayer fashion. Sterile dressings were applied. The patient was awakened and taken to the Postanesthesia Care Unit in stable condition. MD ARASELI Early/JASPER /[id number]
--- NOTE | 2019-05-09 11:40 | NUR ---
FIRST UNIT OF BLOOD TRANSFUSION STARTED. PATIENT TOLERATING WELL. VITAL SIGNS STABLE. WILL CONTINUE TO MONITOR PATIENT.
--- NOTE | 2019-05-09 13:00 | NUR ---
The patient seen and examined, resting in bed. Family member at bedside. The patient is awake and alert, oriented to person. SCDs on. Left lower extremity edema +2. Surgical incision with dressing C/D/I. Labs reviews. Hgb down to 6.4, 2 PRBC infusing. PT to work with the pt out of bed. Repeat labs in am. MIMEOGRAPHER dc'd due to patient being disoriented with it. Ultram BID as needed
--- NOTE | 2019-05-09 13:09 | NUR ---
CM SPOKE TO PATIENT AND PATIENT POA/ SON REGARDING LONG TERM PLACEMENT. CM ATTEMPTS TO GIVE DETAILED INFORMATION ON SKILLED SERVICES VS. HOME HEALTH SERVICES BUT PATIENT SON/ POA AND HIS CONTINUES TO INTERRUPT CM AND RAISE VOICE STATING PATIENT NOT READY. CM EXPLAINED THAT PATIENT WILL NOT BE DISCHARGED AT THIS TIME UNTIL ATTENDING WRITES DISCHARGE ORDER BUT THE SURGEON PUT AN ORDER TO INITIATE LONG TERM PLACEMENT. PATIENT SON CONTINUES TO RAISE VOICE AND STATES THAT PATIENT IS RECEIVING BLOOD AND DOES NOT NEED TO TRANSFER TODAY. CM REITERATES THAT THE ORDER IS ONLY NEEDING TO BE INITIATED SO I CAME FOR CHOICE. CM ATTEMPTS TO SPEAK WITH PATIENT AGAIN, AND IS INTERRUPTED BY PATIENT SON AND HIS . BEDSIDE RN ALFREDO LEAVES ROOM AND PATIENT SON REQUESTS SKILLED FACILITIES WITHIN INSURANCE. CM SUGGESTS TO LEAVE AND WRITE DOWN PLACES AND ADDRESSES FOR FAMILY TO VISIT. PATIENT SON AGREES. CM RETURNS WITH LIST. SON AT BEDSIDE ASSISTING PATIENT. CM GIVES LIST TO SON'S . PATIENT SON WALKS TOWARD UPSET WITH RAISED VOICE. CM CREATES SPACE BETWEEN SELF AND PATIENT SON. OLIVIER MCBRIDE THEN WALKS INTO ROOM. CM SUGGESTS FAMILY COMMUNICATE WITH PEER OLIVIER MCBRIDE OR SHANNAN LEMONS TOMORROW. CM LEAVES ROOM OLIVIER, REED SPEAKS WITH PATIENT AND PATIENT FAMILY.
[2019-05-09] MEDS ORDERED: TRAMADOL HCL 50 MG TAB PO PRN (13:15)
--- NOTE | 2019-05-09 13:35 | NUR ---
IMM EXPLAINED TO SON AT BS, POBrenda (PT ON [employer] DEVELOPER PUMP AND LETHARGIC), SIGNED BY PT'S SON AND PLACED ON CHART COPY TO PT IN CARE TRANSITIONS FOLDER GAVE PT MY CARD TO CALL WHEN THEY HAVE CHOSEN SNF FACILITY GOING TO LOOK AT [facility] AND [facility]
--- NOTE | 2019-05-09 14:03 | NUR ---
FIRST UNIT OF BLOOD COMPLETE. PATIENT TOLERATED WELL. VITAL SIGNS STABLE. LASIX 20 MG IV GIVEN AFTER UNIT OF BLOOD ORDERED.
[2019-05-09] MEDS: FUROSEMIDE INJ 10 MG/ML 2 ML VIAL IV PRN ×2 (14:27→19:40)
[2019-05-09] MEDS ORDERED: SODIUM CHLORIDE 0.9% 250ML 250 ML ONE (15:52)
[2019-05-09] MEDS: RIVAROXABAN 10 MG TABLET PO SCH (16:10)
--- NOTE | 2019-05-09 16:32 | Progress Note ---
DATE: 05/09/2019 Medicine Progress Note Covering for Dr. Polanco. SUBJECTIVE: The patient was admitted and is status post left ORIF performed by Orthopedics. The patient did well postoperatively. Today, she was found to be anemic with a hemoglobin of 6.4 requiring blood transfusion, which has been ordered by Dr. Polanco. OBJECTIVE: VITAL SIGNS: Temperature is 99, pulse 75, respiratory rate is 18, blood pressure is 130/59, and pulse ox is 99% on 2 L nasal cannula. GENERAL: Not in acute distress. Alert and oriented x3. Cooperative on examination. HEENT: Head is normocephalic and atraumatic. Eyes; pupils are equal, round, and reactive to light bilaterally. Extraocular movements are intact bilaterally. Throat, no evidence of erythema or exudates in the posterior pharynx. Has poor dentition. NECK: Supple. Good range of motion. PULMONARY: Clear to auscultation bilaterally. No wheezing, no rales, no rhonchi, no crackles appreciated. CARDIOVASCULAR: Positive S1, S2. No murmurs, rubs, or gallops appreciated. ABDOMEN: Soft, nondistended, and nontender to palpation. Bowel sounds present. MUSCULOSKELETAL: Strength is 5/5 throughout. No evidence of any muscle deficits on examination. No weakness appreciated. NEUROLOGICAL: Cranial nerves 2 through 12 grossly intact. No evidence of any neurological deficits on exam. SKIN: Intact. Warm to touch. Good cap refill. PSYCHIATRIC: Normal affect and mood. EXTREMITIES: No edema. Good range of motion throughout. LABORATORY DATA: Lab findings show white count is 12.9; hemoglobin is 6.4, on admission was 12.3; hematocrit is 19; platelets of 147. Coagulation; PT 12, INR 0.89, PTT 22. Chemistry; sodium 133, potassium 4.7, chloride 102, bicarb 24, anion gap of 11, BUN is 28, creatinine is 0.82, glucose is 180, calcium is 8.1. MICROBIOLOGY: None. IMAGING STUDIES: None. IMPRESSION: 1. Status post left femur ORIF performed on 05/09/2019. 2. Hypertension. 3. Type 2 diabetes. 4. Generalized weakness and medically debilitated. 5. History of cerebrovascular accident with residual deficits. 6. Postoperative anemia. PLAN: At this time, type and screen and 2 units packed RBCs have been ordered for hemoglobin of 6.3. She continues to be on anticoagulation. We are going to repeat labs in the morning. We will monitor her very closely. If her hemoglobin continues to drop, we will have re-transfuse the patient further. I will go ahead and consult with Orthopedics to see if we could hold the Xarelto for now. We will get labs in the morning. Resume same home medications. Case management work on senior care facility placement. I had a long discussion with family at bedside about inpatient rehab versus SNF. MD CHRIS Fraga/MODL /[id number]
--- NOTE | 2019-05-09 16:35 | NUR ---
SECOND UNIT OF PRBC STARTED. PATIENT TOLERATING WELL. NO SIGNS OF DISTRESS. VITAL SIGNS STABLE. CALL LIGHT IN REACH WILL CONTINUE TO MONITOR PATIENT.
--- NOTE | 2019-05-09 19:00 | NUR ---
Report and walking rounds completed. Patient in bed and daughter at bedside. Call light within reach.Will continue to monitor.
--- NOTE | 2019-05-09 20:00 | NUR ---
Patient stating "I am sleepy and going to go to sleep." Daughter stated that would be leaving shortly to go home but if any issues can call her or brother Marlon. Call light within reach. Will continue to monitor.
--- NOTE | 2019-05-09 20:30 | NUR ---
Tele called and stated patient off tele. Nurse to room. RECONSTRUCTIVE SURGEON in room with patient. Reported patient removed iv. Upon assessment, noted patient removed both IV's to LISSY hands, blood on sheets, gown and lissy arms and hands. Patient had removed gown, tele and attempting to get out of bed. Also noted patient pulling on nicholson. Education provided to patient that PT needed to eval patient since had not been out of bed since sx and per son patient was unable to walk prior. Patient bathed and linens changed. Education reinforced that patient had had hip sx and patient verbalized understanding and stated "yes, yesterday" A&O to self, not to place, time. Son Marlon called and stated that him or his sister would be back to spend night with patient. Call light within reach. Will continue to monitor.
--- NOTE | 2019-05-09 21:45 | NUR ---
Patient removed dressing to left hip. Sterile technique used to clean area with sterile water and new sterile dressing applied. Education reinforced to not remove or pick at dressing because it puts patient at risk for infection. Patient verbalized understand and apologetic. Daughter arrived to stay night with patient. New IV inserted to Left upper arm and secured with coban. Noted patient continuing to pick at dressing to left hip, education reinforced and daughter stated she will watch patient to reinforce not to touch dressing, nicholson, tele or IV. Call light within reach. Will continue to monitor.
[2019-05-10] VITALS (7 sets, daily range): BP systolic 115–139; BP diastolic 52–63
[2019-05-10] MEDS: SODIUM CHLORIDE 0.9% 1000ML 1,000 ML IV SCH ×2 (02:23→15:43)
[2019-05-10 06:41] LABS: BASOPHILS % 0.3 % (0.0-1.0); EOSINOPHILS # (AUTO) 0.1 (0.0-0.4); EOSINOPHILS % 1.2 % (0.0-6.0); HEMATOCRIT 26.1 % (34.2-44.1); HEMOGLOBIN 8.7 g/dL (12.0-16.0); LYMPHOCYTES # (AUTO) 3.3 (1.0-3.2); LYMPHOCYTES % 33.2 % (18.0-39.1); MEAN CORPUSCULAR HEMOGLOBIN 31.4 pg (28-32); MEAN CORPUSCULAR HGB CONC 33.3 g/dL (31-35); MEAN CORPUSCULAR VOLUME 94.2 fL (81-99); MONOCYTES # (AUTO) 1.1 (0.2-0.8); MONOCYTES % 10.9 % (4.4-11.3); NEUTROPHILS # (AUTO) 5.3 (2.1-6.9); NEUTROPHILS % 53.5 % (38.7-80.0); PLATELET COUNT 171 x10e3/uL (140-360); RED BLOOD COUNT 2.77 x10e6/uL (3.6-5.1); RED CELL DISTRIBUTION WIDTH 15.2 % (11.7-14.4)
[2019-05-10 06:46] LABS: ANION GAP 12.8 mmol/L (8-16); BLOOD UREA NITROGEN 22 mg/dL (7-26); BUN/CREATININE RATIO 31 (6-25); CALCIUM 8.3 mg/dL (8.4-10.2); CARBON DIOXIDE 24 mmol/L (22-29); CHLORIDE 102 mmol/L (98-107); CREATININE, SERUM 0.72 mg/dL (0.57-1.11); EST GLOMERULAR FILTRATION RATE > 60 ML/MIN (60-); GLUCOSE 173 mg/dL (74-118); POTASSIUM 3.8 mmol/L (3.5-5.1); SODIUM 135 mmol/L (136-145)
--- NOTE | 2019-05-10 07:06 | NUR ---
RECEIVED PATIENT AWAKE RESTING IN BED NO SIGNS OF DISTRESS. FAMILY AT BEDSIDE. BED LOW, WHEELS LOCKED, SIDE RAILS X2. CALL LIGHT IN REACH WILL CONTINUE TO MONITOR PATIENT.
[2019-05-10] MEDS: INSULIN REGULAR, HUMAN 100 UNIT/1 ML 3ML VIAL SQ SCH ×4 (09:01→21:20)
--- NOTE | 2019-05-10 13:30 | NUR ---
PATIENT HAS VOIDED SINCE BLOOM REMOVAL.
--- NOTE | 2019-05-10 15:36 | NUR ---
SPOKE WITH FAMILY, SIGNED CHOICE FOR [facility] FAXED CLINICALS. RTF COMPLETED WITH [employer] [facility]AL IN CHART AND FILED COPY TO GO WITH CLINICALS TO BUILDING.
--- NOTE | 2019-05-10 15:40 | NUR ---
CALLED SUKHJINDER DE LEON AT [facility] TO LET KNOW ABOUT SNF REFERRAL, SHE WILL PROCESS WHEN GETS IN SYSTEM.
[2019-05-10] MEDS: RIVAROXABAN 10 MG TABLET PO SCH (17:06)
--- NOTE | 2019-05-10 17:41 | NUR ---
IV INFILTRATED. REMOVED IV. CATHETER TIP INTACT ON REMOVAL AND PRESSURE DRESSING APPLIED.
[2019-05-10] MEDS ORDERED: QUETIAPINE FUMARATE 25 MG TAB PO PRN (18:45)
--- NOTE | 2019-05-10 19:00 | NUR ---
Report and walking rounds completed. Patient in bed with son at bedside. Call light within reach. Will continue to monitor.
--- NOTE | 2019-05-10 19:16 | NUR ---
Spoke with Dr Del Cid. Patient IV infiltrated and patient has pulled out several IV's. Not getting anything IV except IV fluids. Is okay to leave IV out. Tolerating PO. New order: please put new IV in for emergency access and can D/C IV fluid
--- NOTE | 2019-05-10 19:33 | Progress Note ---
DATE: 05/10/2019 Medicine Progress Note SUBJECTIVE: The patient is very confused today on examination. Apparently, she got very combative last night and was pulling off all her clothes. She calmed down to this morning. She is currently on IV Tylenol for pain and more avoiding all sedating medications including pain medications. encephalopathy at this time. I spoke with the family at bedside. They report that she was confused this morning, but she seems to be Perking up according to the family. PHYSICAL EXAMINATION: VITAL SIGNS: Temperature is 99.4, pulse 67, respiratory rate is 20, blood pressure is 137/60, pulse ox 100% on 2 L nasal cannula. GENERAL: Not in acute distress. Alert and oriented x3. Cooperative on examination. HEENT: Head is normocephalic and atraumatic. Eyes; pupils are equal, round, and reactive to light bilaterally. Extraocular movements are intact bilaterally. Throat, no evidence of erythema or exudates in the posterior pharynx. Has poor dentition. NECK: Supple. Good range of motion. PULMONARY: Clear to auscultation bilaterally. No wheezing, no rales, no rhonchi, no crackles appreciated. CARDIOVASCULAR: Positive S1, S2. No murmurs, rubs, or gallops appreciated. ABDOMEN: Soft, nondistended, and nontender to palpation. Bowel sounds present. MUSCULOSKELETAL: Strength is 5/5 throughout. No evidence of any muscle deficits on examination. No weakness appreciated. NEUROLOGICAL: Cranial nerves 2 through 12 grossly intact. No evidence of any neurological deficits on exam. SKIN: Intact. Warm to touch. Good cap refill. PSYCHIATRIC: Normal affect and mood. EXTREMITIES: No edema. Good range of motion throughout. LABORATORY DATA: Lab findings show white count 9.9, hemoglobin 8.7, hematocrit 26, platelets of 171. Coagulation, PT 12, INR 0.89, PTT 22. Chemistry; sodium 135, potassium 3.8, chloride 102, bicarb 24, anion gap of 12, BUN is 22, creatinine is 0.72, glucose 173, calcium is 8.3. Urinalysis negative. MICROBIOLOGY: None. IMAGING STUDIES: None. IMPRESSION: 1. Status post left femur open reduction and internal fixation performed on 05/09/2019. 2. Hypertension. 3. Type 2 diabetes. 4. Generalized weakness and medically debilitated. 5. History of cerebrovascular accident with residual deficits. 6. Postoperative anemia. PLAN: Hemoglobin much improved after blood transfusion. Get a.m. labs. Monitor closely. She will be on Xarelto for DVT prophylaxis. Continue to work with PT and OT. Pending prison facility placement. Get a.m. labs. In terms of her encephalopathy, I feel like it is from underlying pain medication as well as sundowning and delirium. I discussed plan of care with nurse and the patient's family at bedside to reorient the patient, turn on the lights and possibly hospital in order for her to become more oriented. They verbalized understanding. At this time, we will continue with same plan of care until she is accepted at prison facility. Family verbalized understanding. MD CHRIS Fraga/MODL /[id number]
--- NOTE | 2019-05-10 21:00 | NUR ---
Attempted IV without success. Another nurse on unit attempted IV x3 without success. Will call ER to see if someone can put attempt IV. Someone to come.
[2019-05-10] MEDS: MEMANTINE 10 MG TAB PO SCH (21:18)
[2019-05-10] MEDS: ATORVASTATIN 20 MG TAB PO SCH (21:18)
--- NOTE | 2019-05-10 23:00 | NUR ---
Nurse from ER on unit to attempt to place IV access, without success.
[2019-05-11] VITALS (8 sets, daily range): BP systolic 118–147; BP diastolic 55–67
--- NOTE | 2019-05-11 05:00 | NUR ---
Another nurse attempted IV access x2 without success.
[2019-05-11] MEDS: SODIUM CHLORIDE 0.9% 1000ML 1,000 ML IV SCH ×2 (05:03→18:23)
[2019-05-11] MEDS: LEVOTHYROXINE SODIUM 125 MCG TAB PO SCH (05:30)
--- NOTE | 2019-05-11 05:57 | NUR ---
Patient picking and partially removed dressing. Sterile dressing change to left hip done. Tolerated well. Will continue to monitor.
[2019-05-11 06:30] LABS: BASOPHILS % 0.3 % (0.0-1.0); EOSINOPHILS # (AUTO) 0.1 (0.0-0.4); EOSINOPHILS % 1.3 % (0.0-6.0); HEMATOCRIT 24.8 % (34.2-44.1); HEMOGLOBIN 8.3 g/dL (12.0-16.0); LYMPHOCYTES # (AUTO) 3.1 (1.0-3.2); LYMPHOCYTES % 31.6 % (18.0-39.1); MEAN CORPUSCULAR HEMOGLOBIN 31.6 pg (28-32); MEAN CORPUSCULAR HGB CONC 33.5 g/dL (31-35); MEAN CORPUSCULAR VOLUME 94.3 fL (81-99); MONOCYTES # (AUTO) 1.1 (0.2-0.8); MONOCYTES % 10.8 % (4.4-11.3); NEUTROPHILS # (AUTO) 5.4 (2.1-6.9); PLATELET COUNT 203 x10e3/uL (140-360); RED BLOOD COUNT 2.63 x10e6/uL (3.6-5.1); RED CELL DISTRIBUTION WIDTH 14.9 % (11.7-14.4)
--- NOTE | 2019-05-11 06:50 | NUR ---
Notified Dr Del Cid that 7 attempts to start IV and stated would like patient to have IV access for emergency.
[2019-05-11 06:54] LABS: ANION GAP 10.9 mmol/L (8-16); BLOOD UREA NITROGEN 18 mg/dL (7-26); BUN/CREATININE RATIO 28 (6-25); CALCIUM 8.4 mg/dL (8.4-10.2); CARBON DIOXIDE 24 mmol/L (22-29); CHLORIDE 101 mmol/L (98-107); CREATININE, SERUM 0.65 mg/dL (0.57-1.11); EST GLOMERULAR FILTRATION RATE > 60 ML/MIN (60-); GLUCOSE 189 mg/dL (74-118); POTASSIUM 3.9 mmol/L (3.5-5.1); SODIUM 132 mmol/L (136-145)
--- NOTE | 2019-05-11 07:00 | NUR ---
BEDSIDE SHIFT REPORT RECEIVED, PT IN STABLE CONDITION, DENIES PAIN AT THIS TIME, NO IV ACCESS, L HIP DSG C/D/I, NO OTHER CO VOICED CALL LIGHT IN REACH WILL CONTINUE OT MONITOR
[2019-05-11] MEDS: INSULIN REGULAR, HUMAN 100 UNIT/1 ML 3ML VIAL SQ SCH ×4 (07:30→21:12)
[2019-05-11] MEDS ORDERED: LEVOTHYROXINE SODIUM 50 MCG TAB PO SCH (09:00)
[2019-05-11] MEDS: ASPIRIN 81 MG ENTERIC COATED PO SCH (09:12)
[2019-05-11] MEDS: FOLIC ACID 1 MG TAB PO SCH (09:13)
[2019-05-11] MEDS: FLUOXETINE HCL 20 MG CAP PO SCH (09:13)
--- NOTE | 2019-05-11 11:13 | NUR ---
PT ACCEPTED TO [address] DR GAVIN HARDIN AT [facility] IN [place] COMPLETED RTF FOR COMPLETION OF TRANSFER.
--- NOTE | 2019-05-11 15:50 | NUR ---
LET FACILITY KNOW MD IS KEEPING PT 1 MORE DAY AND WILL DISCHARGE TOMORROW.
[2019-05-11] MEDS: RIVAROXABAN 10 MG TABLET PO SCH (17:09)
--- NOTE | 2019-05-11 18:45 | NUR ---
Received bedside report from day shift RN. The patient is laying on the bed, not in distress. Call light within reach, bed height low, wheels lock and side rails up x2. Family members at bedside.
--- NOTE | 2019-05-11 20:01 | Progress Note ---
DATE: 05/11/2019 Medicine Progress Note I am covering for Dr. Polanco. SUBJECTIVE: The patient is still confused, but was able to answer few questions on examination. Family is not comfortable discharging the patient today. They report that they want to see how the patient does before they transfer her out. They were pretty receptive and I we will go ahead and see how she does overnight, but likely we will what she can do to be discharged tomorrow. I feel like the patient likely has some sundowning with delirium. PHYSICAL EXAMINATION: VITAL SIGNS: Temperature 96.9, pulse 64, respiratory rate 17, blood pressure 147/58, pulse oximetry 100% on room air. GENERAL: Not in acute distress. Alert and oriented x3. Cooperative on examination. HEENT: Head is normocephalic and atraumatic. Eyes; pupils are equal, round, and reactive to light bilaterally. Extraocular movements are intact bilaterally. Throat, no evidence of erythema or exudates in the posterior pharynx. Has poor dentition. NECK: Supple. Good range of motion. PULMONARY: Clear to auscultation bilaterally. No wheezing, no rales, no rhonchi, no crackles appreciated. CARDIOVASCULAR: Positive S1, S2. No murmurs, rubs, or gallops appreciated. ABDOMEN: Soft, nondistended, and nontender to palpation. Bowel sounds present. MUSCULOSKELETAL: Strength is 5/5 throughout. No evidence of any muscle deficits on examination. No weakness appreciated. NEUROLOGICAL: Cranial nerves II through XII grossly intact. No evidence of any neurological deficits on examination. No weakness appreciated. SKIN: Intact. Warm to touch. Good cap refill. PSYCHIATRIC: Normal affect and mood. EXTREMITIES: No edema. Good range of motion throughout. LABORATORY DATA: Lab findings show white count of 9.8, hemoglobin 8.3, hematocrit 24.8, platelets of 203. Chemistry; sodium is 132, potassium 3.9, chloride 101, bicarb 24, anion gap 10.9, creatinine is 0.65, calcium is 8.4, and blood glucose is 193. MICROBIOLOGY: None. IMPRESSION: 1. Status post left femur open reduction and internal fixation performed on 05/09/2019. 2. Hypertension. 3. Type 2 diabetes. 4. Generalized debility. 5. History of cerebrovascular accident with residual deficits. 6. Postoperative anemia. 7. In-hospital delirium. PLAN: At this time, hemoglobin is 8.3. Continue with Xarelto for DVT prophylaxis. Work with PT and OT. She has been accepted at senior care facility, but the family is not comfortable discharging her today due to underlying delirium in the hospital. She is alert and oriented x1 today on examination. She is able to talk to me, but not making sense with words. She was fine a few days ago and it seems like this is likely due to be from either IV anesthesia or pain medications. Also being in the hospital can cause her to be delirious. We will monitor her overnight. If she does well tomorrow, she could be discharged. MD CHRIS Fraga/JASPER /[id number]
[2019-05-11] MEDS: ATORVASTATIN 20 MG TAB PO SCH (21:11)
[2019-05-11] MEDS: MEMANTINE 10 MG TAB PO SCH (21:11)
--- NOTE | 2019-05-11 21:24 | NUR ---
Patient's daughter stated her mom has not had a BM for [address] Del Cid receiving order to give Dulcolax 10 mg PO once the next morning
[2019-05-12] VITALS: BP 116/56
[2019-05-12 04:00] VITALS: BP 111/52
[2019-05-12] MEDS: LEVOTHYROXINE SODIUM 125 MCG TAB PO SCH (05:42)
--- NOTE | 2019-05-12 06:33 | NUR ---
RN and CLAIM TAKER helped changed the diaper for the patient. Bath wipes was used to clean the patient. Patient was turned to right side.
[2019-05-12 06:42] LABS: BASOPHILS # (AUTO) 0.1 (0.0-0.1); BASOPHILS % 0.5 % (0.0-1.0); EOSINOPHILS # (AUTO) 0.2 (0.0-0.4); EOSINOPHILS % 2.1 % (0.0-6.0); HEMOGLOBIN 8.1 g/dL (12.0-16.0); LYMPHOCYTES # (AUTO) 3.4 (1.0-3.2); LYMPHOCYTES % 35.1 % (18.0-39.1); MEAN CORPUSCULAR HEMOGLOBIN 31.8 pg (28-32); MEAN CORPUSCULAR HGB CONC 32.4 g/dL (31-35); MONOCYTES % 10.3 % (4.4-11.3); NEUTROPHILS # (AUTO) 4.8 (2.1-6.9); NEUTROPHILS % 50.5 % (38.7-80.0); PLATELET COUNT 214 x10e3/uL (140-360); RED BLOOD COUNT 2.55 x10e6/uL (3.6-5.1); RED CELL DISTRIBUTION WIDTH 14.7 % (11.7-14.4)
[2019-05-12 07:30] VITALS: BP 152/67
[2019-05-12] MEDS ORDERED: BISACODYL 5 MG TAB EC PO ONE (07:30)
[2019-05-12] MEDS: INSULIN REGULAR, HUMAN 100 UNIT/1 ML 3ML VIAL SQ SCH ×2 (07:30→11:40)
--- NOTE | 2019-05-12 07:30 | NUR ---
REC'D PATIENT AAOX1-2. DAUGHTER AT THE BEDSIDE, NO S/S OF DISTRESS, O2 DELIVERED AT 2L/MIN, IV TO THE RIGHT HAND S/L INTACT AND PATENT. DRESSING TO THE RIGHT HIP IS DRY AND INTACT. TORIE HOSE TO RIGHT LEG AND FOOT SCDS TO BILATERAL LOWER EXTREMITIES. ENCOURAGED PATIENT TO EAT BREAKFAST WITH MEDS. SIDE RAILS UP X2, BED IN LOWEST POSITION, AND CALL [facility] WITHIN REACH.
[2019-05-12] MEDS: FLUOXETINE HCL 20 MG CAP PO SCH (09:09)
[2019-05-12] MEDS: ASPIRIN 81 MG ENTERIC COATED PO SCH (09:09)
[2019-05-12] MEDS: FOLIC ACID 1 MG TAB PO SCH (09:09)
[2019-05-12 09:13] VITALS: BP 152/67
[2019-05-12 13:31] VITALS: BP 116/56
--- NOTE | 2019-05-12 14:34 | NUR ---
PATIENT REC'D A SPONGE BATH. DRESSING CHANGED TO LEFT HIP/LEG. NO S/S OF INFECTION NOTED. SIDE RAILS UPX3, BED IN LOWEST POSITION, AND CALL [facility] WITHIN REACH. FAMILY AT THE BEDSIDE.
[2019-05-12] MEDS ORDERED: SEROQUEL25 MG PO (14:53)
[2019-05-12] MEDS ORDERED: XARELTO10 MG PO (14:53)
[2019-05-12] MEDS ORDERED: TYLENOL WITH C1 EACH PO (15:11)
--- NOTE | 2019-05-12 15:45 | NUR ---
CALLED [facility] AND GAVE REPORT TO NURSE ZEPEDA. CALLED EMS FOR [employer] AND TRANSFER AND GAVE TIME FRAME OF ONE HOUR.
[2019-05-12 17:23] VITALS: BP 147/61
[2019-05-12] MEDS: RIVAROXABAN 10 MG TABLET PO SCH (17:26)
--- NOTE | 2019-05-12 17:35 | NUR ---
PATIENT PICKED UP BY [facility]. IV LEFT IN PLACE FOR TRANSFER INCASE OF AN EMERGENCY. NO S/S OF DISTRESS. PAPERWORK SIGNED.
--- NOTE | 2019-05-13 00:24 | Discharge Summary ---
FINAL DISCHARGE DIAGNOSES: 1. Status post left femur ORIF performed on 05/09/2019, by Orthopedics. 2. Hypertension. 3. Type 2 diabetes. 4. Generalized debilitation. 5. History of cerebrovascular accident with residual deficits. 6. Postop anemia, improved. 7. In-hospital delirium with underlying dementia. CONSULTANTS: Orthopedics. PHYSICAL EXAMINATION: VITAL SIGNS: Temperature is 99.8, pulse 69, respiratory rate 17, blood pressure 147/61, and pulse ox 99% on room air. LABORATORY FINDINGS: Show white count 9.5, hemoglobin 8.1, hematocrit 25, and platelets of 214. Coagulation; PT 12, INR 0.89, PTT 22. Chemistry; sodium 132, potassium 3.9, chloride 101, bicarb 24, anion gap of 15, BUN is 18, creatinine 0.65, glucose 189, calcium is 8.4. LFTs were normal. Albumin was 3.2. Urinalysis was negative. MICROBIOLOGY: None. IMAGING STUDIES: Chest x-ray shows emphysematous changes. Hip x-ray shows comminuted intertrochanteric fracture of the left hip. Brain CT, no acute abnormality seen. There are some chronic findings seen, but nothing acute. Pelvic x-ray repeat after the procedure shows status post ORIF of the left intertrochanteric fracture. HOSPITAL COURSE: This lady is a 78-year-old female, morbidly obese, apparently had a mechanical fall landing on her left hip. This patient was found to have a left femur fracture, requiring Orthopedic consultation. The patient underwent status post left femur ORIF performed on 05/09/2019. The patient did well postoperatively with no complaints. She did develop postop anemia requiring blood transfusion with a discharge hemoglobin of 8.1. She will be discharged on oral Xarelto for DVT prophylaxis. She worked with PT and OT while here in the hospital stay. She was accepted to [facility]. Her blood pressure and diabetes were well controlled. She did develop in-hospital delirium, but improved tremendously prior to being discharged to [facility]. I spoke with the family prior to being discharged. There were okay with discharging to [facility] with no complaints. On the day of discharge, the patient was at baseline with no other issues. On the day of discharge, vital signs were stable, labs reviewed and stable. The patient seen and evaluated, examined thoroughly on the day of discharge. No other complaints. The patient verbalized understanding and agreed to plan of care to followup appointment as an outpatient with PCP in 1 week and Orthopedics in 10 days for staple removal. MEDICATIONS: See med reconciliation form. DISPOSITION: To [facility]. CONDITION: Stable. DIET: Heart healthy. In the event of any worsening symptoms, the patient was advised to come back to the ED for further evaluation. Discharge summary took greater than 35 minutes. MD CHRIS Fraga/JASPER /[id number]
== END 2019-05-12 17:30 | DRG 480 ==
LOC: ER 17:20 → ERHOLD 20:34 → MED/SURG 22:27
PROVIDERS: ADMIT Internal Medicine; ATTEND Internal Medicine
PROC: 0QS734Z Reposition Left Upper Femur with Internal Fixation Device, Percutaneous Approach (ICD-10-PCS; principal; 2019-05-08 08:00)
PROC: 30250N1 (ICD-10-PCS; 2019-05-09)
DX: S72.142A Displaced intertrochanteric fracture of left femur, initial encounter for closed fracture (principal); G92 Toxic encephalopathy; F03.91 Unspecified dementia, unspecified severity, with behavioral disturbance; F05 Delirium due to known physiological condition; W19.XXXA Unspecified fall, initial encounter; D50.0 Iron deficiency anemia secondary to blood loss (chronic); T50.995A Adverse effect of other drugs, medicaments and biological substances, initial encounter; E11.9 Type 2 diabetes mellitus without complications; I69.398 Other sequelae of cerebral infarction
CPT/HCPCS: 36415; 70450; 71045; 72170; 80048; 80053; 81001; 82948; 85025; 85610; 85730; 86850; 86900; 86920; 97139; 99284; C1713; J0690; J1100; J1817; J1940; J2001; J2270; J2405; J3010; J7030; J7050; P9016

== ENCOUNTER 2019-09-28 17:10 | Emergency (ER) | payer OTHER ==
[~2019-09-28] VITALS: Ht 171.4 cm; Wt 94.3 kg
[~2019-09-28 17:10] MED LIST changes: +ACETAMINOPHEN325 M1 PO; +ASPIRIN EC81 MG PO; +DULCOLAX SUPP10 MG RC; +HYZAAR 100-251 EACH PO; +LEVEMIR100 UNIT/1 SQ; +NAMENDA10 MG PO; +ONDANSETRON HCL4 MG PO; +POLYETHYLENE GL17 GM PO; +SENNA LAX8.6 MG PO; +SEROQUEL25 MG PO; +XARELTO10 MG PO
[2019-09-28 19:07] VITALS: BP 147/66
--- NOTE | 2019-09-28 19:13 | Diagnostic Imaging Report ---
History: Fall, pain and left eye bruising Comparison studies:CT head and cervical spine 01/20/2019 and MRI brain 05/06/2019 Technique: Axial images were obtained from the brain, face and cervical spine. Coronal and sagittal reconstructions obtained from the axial data. Intravenous contrast: None Dose modulation, iterative reconstruction, and/or weight based adjustment of the mA/kV was utilized to reduce the radiation dose to as low as reasonably achievable. Findings: Head CT: Scalp/skull: No abnormalities. No fractures, blastic or lytic lesions. Extra-axial spaces: No masses. No fluid collections. Brain sulci: Mildly prominent. Ventricles: Mild compensatory dilatation. No hydrocephalus. Parenchyma: Subtle hypodensities in the supratentorial white matter are small vessel ischemic changes. Cortical-based hypodensity in the left mid parietal lobe and right inferior cerebellum, secondary to remote insults. No masses, hemorrhage or acute cortical vascular insults. Sellar/suprasellar region: No abnormalities. Craniocervical junction: Patent foramen magnum. No Chiari one malformation. Incidental findings: Atherosclerotic calcifications in the carotid siphons and vertebral arteries . Maxillofacial CT: Soft tissues: Left supraorbital hematoma. Bones: No acute fractures or bony abnormalities. . Orbits: No acute abnormalities. Paranasal sinuses: Mucous retention cyst at the right maxillary sinus. No dentition at the maxilla and multiple missing dentition at the mandible . Cervical spine CT: Fractures: None. Soft tissues: No gross abnormalities. Atlantoaxial articulation: Degenerative changes without acute abnormality. Alignment: Straightening of the normal lordosis. No scoliosis. Cervicomedullary junction: No abnormalities. The foramen magnum is patent. Vertebrae: No infection or neoplasm. Degenerative changes: Multilevel degenerative foraminal narrowing, moderate at C3-4, severe left at C4-5, severe right at C5-6, severe bilateral at C6-7. Moderate degenerative canal stenosis at C6-7. Incidental findings: Coarse atherosclerotic calcifications at the carotid bulbs. Impression: Head CT: 1. No acute intracranial abnormality. Stable from previous examination. 2. Acute left frontal scalp hematoma without underlying fracture. Facial CT: 1. Left supraorbital hematoma. 2. No fractures. Cervical spine CT: 1. No acute cervical abnormalities. 2. Cannot exclude ligament, spinal cord and or vascular abnormalities on the basis of this examination. Signed by: DR Klaus Rivera M.D. on 09/28/2019 7:08 PM
== END 2019-09-28 20:14 | disposition home or self-care (01) ==
LOC: ER 17:10
DX: S00.81XA Abrasion of other part of head, initial encounter (principal); W07.XXXA Fall from chair, initial encounter; W01.0XXA Fall on same level from slipping, tripping and stumbling without subsequent striking against object, initial encounter; I10 Essential (primary) hypertension; E11.9 Type 2 diabetes mellitus without complications; E03.9 Hypothyroidism, unspecified; E78.5 Hyperlipidemia, unspecified; Z86.73 Personal history of transient ischemic attack (TIA), and cerebral infarction without residual deficits; Z79.82 Long term (current) use of aspirin
CPT/HCPCS: 70450; 70486; 72125; 99282